=== PATIENT | female | born 1935 | race Two or more races ===

== ENCOUNTER 2023-08-26 17:54 | Observation (INO) ==
--- NOTE | 2023-08-26 18:20 | ED.PDOC ---
General ED Provider: Dr. BRADEN GUERRERO MD Chief Complaint: Weakness Stated Complaint: Patient presents to ER from home via EMS accompanied by her grand-daughter complaining of bilateral knee pain and weakness. Patient's daughter reports patient started to become weaker yesterday morning. Has a history of bilateral total knee arthroplasty. Usually is able to ambulate with front wheeled walker independently. Stated that yesterday she started requiring a 1-2 person assist to transfer. Has also been having urinary incontinence which is unusual for her. No previous history of CHF. Denies fever, chills, nausea, vomiting, or diarrhea. No shortness of breath, chest pain, or paresthesias. No other complaints. Time Seen by Provider: 08/26/23 18:39 Information Source: Patient and Family (Granddaughter) Exam Limitations: No limitations Nursing and Triage Documentation Reviewed and Agree: Yes Review of Systems Review Of Systems Constitutional: Reports Weakness All Other Systems: Reviewed and Negative PFSH Female Reproductive History Menstrual Hx Hysterectomy: No Hx Tubal Ligation: No Physical Exam Physical Exam Appearance: Reports Ill-appearing (Chronic) Ill-appearing: Mild Pain Distress: Mild Eyes: Reports AZAM and EOMI ENT: Reports Ears normal, Nose normal and Oropharynx normal Neck: Supple Respiratory: Reports Airway patent, Breath sounds clear and Breath sounds diminished Cardiovascular: Reports RRR, Pulses normal and No murmur GI/: Reports Soft and Nontender Musculoskeletal: Reports Limited strength (BLE: 3/5 strength; bilateral pedal edema: +3 (up to midshin)) Skin: Reports Warm and Dry Neurological: Reports Sensation intact and Motor intact Psychiatric: Reports Affect appropriate and Mood appropriate Interpretation EKG Interpretation EKG Interpretation By: ED Physician Time of EKG #1: 18:23 Rate: Normal Rhythm: Sinus Ectopy: PVCs and PACs ST Segment: Normal Interpretation: Sinus rhythm with PVCs, PACs; interpreted by me. EKG Interpretation By: ED Physician Time of EKG #2: 20:05 Rate: Normal Rhythm: Sinus Ectopy: PACs ST Segment: Normal EKG Interpretation: Sinus rhythm with PACs interpreted by me. EKG Comparison: No significant changes Radiology Interpretation Radiology Interpretation By: ED Physician Radiology Results: Negative Exam Interpreted: CXR Xray Comments: No acute cardiopulmonary process interpreted by me. Physician Notification Case Discussed Comments: Spoke with on-call hospitalist regarding patient's status and current workup and management. Discussed patient having +3 pitting edema of bilateral lower legs up to mid barrientos as well as significantly elevated BNP of 1780. Given Lasix 20 IV with good urine output (550 cc) noted via Ga catheter. Agreed with inpatient admission for further workup and management. Endorsed To/Discussed With: Alyson Brown PA-C Time of Discussion: 20:00 Admit/Transition Orders Entered by ED Provider: Yes Admit To: Inpatient Critical Care Note Critical Care Note Total Critical Care Time (mins): 0 Course Course 08/26/23 18:36 08/26/23 18:36 Orders, Labs, Meds: Lab Review 08/26/23 08/26/23 08/26/23 18:32 18:36 19:23 WBC 8.72 RBC 4.56 Hgb 13.3 Hct 40.9 MCV 89.7 MCH 29.2 MCHC 32.5 RDW Coeff of Arturo 14.2 Plt Count 244 Immature Gran % (Auto) 0.5 Neut % (Auto) 69.6 Lymph % (Auto) 14.3 [place] % (Auto) 14.8 H Eos % (Auto) 0.7 Baso % (Auto) 0.1 Neut # (Auto) 6.1 Lymph # (Auto) 1.3 [place] # (Auto) 1.3 Eos # (Auto) 0.1 Baso # (Auto) 0.0 Immature Gran # (Auto) 0.0 Sodium 135.7 Potassium 3.35 L Chloride 105.5 Carbon Dioxide 26.7 Anion Gap 6.85 BUN 14.8 Creatinine 1.03 Estimated GFR (MDRD) 51.00 BUN/Creatinine Ratio 14.36 Glucose 128.5 H Calcium 8.21 L Magnesium 1.96 Total Bilirubin 1.27 AST 26.0 ALT 21.0 Alkaline Phosphatase 81.3 Troponin I 0.017 NT-Pro-B Natriuret Pep 1780 H Total Protein 6.57 Albumin 3.33 L Globulin 3.24 Albumin/Globulin Ratio 1.02 TSH 0.639 Urine Color Urine Clarity Urine pH Ur Specific [place] Urine Protein Urine Glucose (UA) Urine Ketones Urine Blood Urine Nitrite Urine Bilirubin Urine Urobilinogen Ur Leukocyte Esterase Urine Microscopic RBC Urine Microscopic WBC Ur Squamous Epith Cells Urine Bacteria Hyaline Casts Fine Granular Casts Urine Mucus Influ A Molecular Assay Negative by naat Influ B Molecular Assay Negative by naat RSV Antigen Negative by naat SARS CoV-2 RNA Rapid EMILIA Negative 08/26/23 19:45 WBC RBC Hgb Hct MCV MCH MCHC RDW Coeff of Arturo Plt Count Immature Gran % (Auto) Neut % (Auto) Lymph % (Auto) [place] % (Auto) Eos % (Auto) Baso % (Auto) Neut # (Auto) Lymph # (Auto) [place] # (Auto) Eos # (Auto) Baso # (Auto) Immature Gran # (Auto) Sodium Potassium Chloride Carbon Dioxide Anion Gap BUN Creatinine Estimated GFR (MDRD) BUN/Creatinine Ratio Glucose Calcium Magnesium Total Bilirubin AST ALT Alkaline Phosphatase Troponin I NT-Pro-B Natriuret Pep Total Protein Albumin Globulin Albumin/Globulin Ratio TSH Urine Color Yellow Urine Clarity Clear Urine pH 5.5 Ur Specific [place] 1.025 Urine Protein 1+ H Urine Glucose (UA) Negative Urine Ketones Negative Urine Blood Trace-lysed Urine Nitrite Negative Urine Bilirubin Negative Urine Urobilinogen 1.0 H Ur Leukocyte Esterase Negative Urine Microscopic RBC 10-20 Urine Microscopic WBC 2-5 Ur Squamous Epith Cells 2-5 Urine Bacteria 2+ Hyaline Casts 5-10 Fine Granular Casts 0-2 Urine Mucus 2+ Influ A Molecular Assay Influ B Molecular Assay RSV Antigen SARS CoV-2 RNA Rapid EMILIA Orders Category Date Time Status ADMIT PATIENT INPATIENT .TO MEDSURG (MONITORED BED) ADMISSION 08/26/23 20:14 Active EKG-(ED ONLY) Stat CARDIO 08/26/23 18:19 Completed EKG-(ED ONLY) Stat CARDIO 08/26/23 20:01 Completed PULSE OX [CONTINUOUS PULSE OX (NURSING)] PULSEOX CARE 08/26/23 18:17 Active TELEMETRY MONITORING TELE CARE 08/26/23 20:14 Active Slab Conditioner Supervisor [ED COATER HAND APPLIED] .ONCE EMERGENCY 08/26/23 18:17 Active Insert Ga [ED CATHETER INSERTION AND CARE] .ONCE EMERGENCY 08/26/23 19:22 Active CBC W/ AUTO DIFF Stat LAB 08/26/23 18:36 Completed CMP [COMPREHENSIVE METABOLIC PANEL] Stat LAB 08/26/23 18:36 Completed FLU A & B MOLECULAR [FLU A/B MOLECULAR] Stat LAB 08/26/23 18:32 Completed MAGNESIUM Stat LAB 08/26/23 19:23 Completed PROBNP ED [NT-PROBNP(ED)] Stat LAB 08/26/23 18:36 Completed RSV Stat LAB 08/26/23 18:32 Completed SARS COV-2 RNA RAPID EMILIA Stat LAB 08/26/23 18:32 Completed TROPONIN I Stat LAB 08/26/23 18:36 Completed TSH [THYROID STIMULATING HORMONE] Stat LAB 08/26/23 18:36 Completed URINALYSIS C & S IF INDICATED Stat LAB 08/26/23 19:45 Completed URINE CULTURE Stat LAB 08/26/23 19:45 Received Furosemide [Lasix] Meds 08/26/23 19:21 Discontinued 20 mg IVP ONCE STA Potassium Chloride [K-Dur] Meds 08/26/23 19:21 Discontinued 40 meq PO ONCE STA CHEST, 1V AP ONLY Stat RADS 08/26/23 18:20 Completed KNEE, LEFT 1 OR 2 VIEWS Stat RADS 08/26/23 18:17 Completed KNEE, RIGHT 1 OR 2 VIEWS Stat RADS 08/26/23 18:17 Completed Medications Discontinued Medications Generic Name Dose Route Start Last Admin Trade Name Freq PRN Reason Stop Dose Admin Furosemide 20 mg 08/26/23 19:21 08/26/23 19:50 Furosemide Inj 20 Mg/2 Ml Vial IVP 08/26/23 19:22 20 mg ONCE STA Administration Potassium Chloride 40 meq 08/26/23 19:21 08/26/23 19:50 Potassium Chloride 20 Meq Tab PO 08/26/23 19:22 40 meq ONCE STA Administration Vital Signs: Temp Pulse Resp BP Pulse Ox 08/26/23 18:07 97.5 F L 106 H 20 103/67 92 L Discharge Plan Discharge Patient Disposition: ADMITTED INPATIENT Discharge Problem: CHF exacerbation Qualifiers: Heart failure type: unspecified Qualified Code(s): I50.9 - Heart failure, unspecified Did you review [place] [employer] for ALL controlled substances?: Not Applicable ED Provider: BRADEN GUERRERO Condition: Stable Physician Progress Note: []
[2023-08-26 18:44] LABS: BASOPHILS % (AUTO) 0.1 % (0.0-3.0); EOSINOPHILS # (AUTO) 0.1 K/ul (0.0-0.7); EOSINOPHILS % (AUTO) 0.7 % (0.0-7.0); HEMATOCRIT 40.9 % (37.0-47.0); HEMOGLOBIN 13.3 g/dl (12.0-16.0); IMMATURE GRANULOCYTE % (AUTO) 0.5 % (0.0-5.0); LYMPHOCYTES # (AUTO) 1.3 K/uL (0.60-3.4); LYMPHOCYTES % (AUTO) 14.3 (10.0-50.0); MEAN CORPUSCULAR HEMOGLOBIN 29.2 pg (27.0-31.0); MEAN CORPUSCULAR HGB CONC 32.5 (31.8-35.4); MEAN CORPUSCULAR VOLUME 89.7 fl (81.0-99.0); MONOCYTES # (AUTO) 1.3 K/uL (0.4-2.0); MONOCYTES % (AUTO) 14.8 (0-10); NEUTROPHILS # (AUTO) 6.1 K/ul (2.0-6.9); NEUTROPHILS % (AUTO) 69.6 % (42.2-75.2); PLATELET COUNT 244 10^3/uL (140-440); RDW COEFFICIENT OF VARIATION 14.2 % (11.6-14.8); RED BLOOD COUNT 4.56 10^6/ul (4.20-5.40); WHITE BLOOD COUNT 8.72 K/ul (4.6-10.2)
[2023-08-26 18:57] LABS: ALBUMIN 3.33 g/dL (3.5-5.0); ALKALINE PHOSPHATASE 81.3 U/L (53-141); BILIRUBIN,TOTAL 1.27 mg/dL (0.2-1.3); BLOOD UREA NITROGEN 14.8 mg/dL (7-17); CALCIUM 8.21 mg/dL (8.4-10.2); CARBON DIOXIDE 26.7 mmol/L (22-30.0); CHLORIDE 105.5 mmol/L (98-107); CREATININE 1.03 mg/dL (0.60-1.30); GLUCOSE 128.5 mg/dL (74-106); POTASSIUM 3.35 mmol/L (3.5-5.1); SODIUM 135.7 mmol/L (134.5-145); TOTAL PROTEIN 6.57 g/dL (6.3-8.2)
[2023-08-26 19:04] LABS: RSV MOLECULAR NEGATIVE BY NAAT (NEGATIVE); SARS COV-2 RNA RAPID NAAT NEGATIVE (NEGATIVE)
[2023-08-26 19:05] LABS: MOLECULAR FLU A NEGATIVE BY NAAT (NEGATIVE); MOLECULAR FLU B NEGATIVE BY NAAT (NEGATIVE)
[2023-08-26] MEDS ORDERED: K-DUR PO STA (19:21)
[2023-08-26] MEDS ORDERED: LASIX IVP STA (19:21)
[2023-08-26 19:28] LABS: THYROID STIMULATING HORMONE 0.639 uIU/L (0.465-4.68)
[2023-08-26 19:58] LABS: BILIRUBIN,URINE Negative (NEGATIVE); CLARITY,URINE Clear (CLEAR); COLOR,URINE Yellow (YELLOW); GLUCOSE, URINE (UA) Negative (NEGATIVE); KETONES,URINE Negative (NEGATIVE); LEUKOCYTE ESTERASE ,URINE Negative (NEGATIVE); NITRITE,URINE Negative (NEGATIVE); PH,URINE 5.5 (5-9); PROTEIN,URINE 1+ (NEGATIVE); URINE, BLOOD Trace-lysed (NEGATIVE)
--- NOTE | 2023-08-26 20:00 | DI ---
EXAM: LEFT KNEE TWO VIEW HISTORY: Left knee pain IMPRESSION: No acute bony or articular abnormality. Knee arthroplasty. No cathi-hardware fracture or evidence of loosening. Generalized bony demineralization.
--- NOTE | 2023-08-26 20:01 | DI ---
EXAM: RIGHT KNEE TWO-VIEW History: Right knee pain Impression: Right knee arthroplasty. No cathi-hardware fracture or evidence of loosening. No acute bony or articular abnormalities. The bones are demineralized.
--- NOTE | 2023-08-26 20:02 | DI ---
THE EXAM: CHEST ONE-VIEW History: Diminished breath sounds FINDINGS: Normal cardiomediastinal contours aside from small hiatus hernia shadow. Normal pulmonary vasculature. No infiltrative opacities. No acute chest wall abnormality. Impression: No acute cardiopulmonary disease
[2023-08-26 20:05] LABS: BACTERIA,URINE 2+ (NOT PRESENT)
[2023-08-26 20:06] LABS: FINE GRANULAR CASTS,URINE 0-2 (NOT PRESENT)
[2023-08-26 20:07] LABS: MUCUS,URINE 2+ (NOT PRESENT)
[2023-08-26] MEDS ORDERED: ZOFRAN 4 MG/2 ML IVP PRN (20:53)
[2023-08-26] MEDS ORDERED: TYLENOL PO PRN (20:53)
[2023-08-26 21:33] VITALS: BMI 31.3
[2023-08-26] MEDS: LOVENOX SUBCUT SCH (21:56)
[2023-08-26] MEDS: LOPRESSOR PO SCH (22:26)
[2023-08-27] MEDS: LASIX IVP SCH ×3 (01:07→16:42)
[2023-08-27 05:54] LABS: BASOPHILS % (AUTO) 0.1 % (0.0-3.0); EOSINOPHILS # (AUTO) 0.2 K/ul (0.0-0.7); EOSINOPHILS % (AUTO) 2.1 % (0.0-7.0); HEMATOCRIT 43.7 % (37.0-47.0); IMMATURE GRANULOCYTE % (AUTO) 0.4 % (0.0-5.0); LYMPHOCYTES # (AUTO) 1.6 K/uL (0.60-3.4); LYMPHOCYTES % (AUTO) 19.3 (10.0-50.0); MEAN CORPUSCULAR HEMOGLOBIN 29.4 pg (27.0-31.0); MEAN CORPUSCULAR VOLUME 91.6 fl (81.0-99.0); MONOCYTES % (AUTO) 12.3 (0-10); NEUTROPHILS # (AUTO) 5.3 K/ul (2.0-6.9); NEUTROPHILS % (AUTO) 65.8 % (42.2-75.2); PLATELET COUNT 266 10^3/uL (140-440); RDW COEFFICIENT OF VARIATION 14.3 % (11.6-14.8); RED BLOOD COUNT 4.77 10^6/ul (4.20-5.40); WHITE BLOOD COUNT 8.04 K/ul (4.6-10.2)
[2023-08-27 06:07] LABS: ALANINE AMINOTRANSFERASE 20.7 U/L (0-35); ALBUMIN 3.57 g/dL (3.5-5.0); ALKALINE PHOSPHATASE 81.1 U/L (53-141); ASPARTATE AMINO TRANSFERASE 26.7 U/L (14-36); BILIRUBIN,TOTAL 1.04 mg/dL (0.2-1.3); BLOOD UREA NITROGEN 15.6 mg/dL (7-17); CALCIUM 8.35 mg/dL (8.4-10.2); CARBON DIOXIDE 28.7 mmol/L (22-30.0); CHLORIDE 104.9 mmol/L (98-107); CREATININE 0.94 mg/dL (0.60-1.30); GLUCOSE 97.3 mg/dL (74-106); HDL CHOLESTEROL 37.5 mg/dL (35-80); POTASSIUM 4.01 mmol/L (3.5-5.1); SODIUM 137.2 mmol/L (134.5-145); TOTAL PROTEIN 6.96 g/dL (6.3-8.2); TRIGLYCERIDES 75.8 mg/dL (0-150)
[2023-08-27] MEDS: FERROUS SULFATE PO SCH (09:10)
[2023-08-27] MEDS: LOPRESSOR PO SCH ×2 (09:10→20:15)
[2023-08-27] MEDS: LOVENOX SUBCUT SCH (09:19)
--- NOTE | 2023-08-27 09:50 | PCM ---
Date of Service Date Seen by Provider: 08/27/23 Time Seen by Provider: 08:15 Admit Day/Time Admission Date: 08/26/23 Admission Time: 20:14 Reason for Admission Chief Complaint: CHF EXACERBATION Hospital Provider Hospital Provider: LILIANA DENISE PA-C, [facility] Primary Care Physician Primary Care Physician: ARY VIDAL History of Present Illness History of Present Illness: Patient is an 88 year old female from home with pmhx of hypertension, iron deficiency, skin cancer who presented to ER for weakness, unable to walk, and swelling in her legs. Patient states for the last few days she's went from walking with her walker to needing 1-2 people to assist her with ADLs. She states she went to sit on the toilet to use the bathroom and had to sit there for about 3 hours until someone came and helped her get up. She states her legs have been swollen but she's unsure how long they've been like that. She thinks this is new. States her legs have been weeping. She denies cp or sob. Has had some urinary frequency. In ER she was found to have elevated BNP, 3+ pitting edema, and ERP states she was going in and out of a fib which was new for the patient as well. She was given lasix and potassium in ER. Admitted to med surg for further evaluation. Overnight the nurse had documented patient would drop into oxygen saturation of 80s while sleeping as well. Case Discussed With Case Discussed With: Patient's case was discussed with the ER Physicians, Dr. Sung. 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 - Benign neoplasm, unspecified site (ICD-10) Hypertension I10 - Essential (primary) hypertension (ICD-10) Skin cancer C44.90 - Unspecified malignant neoplasm of skin, unspecified (ICD-10) Surgical History History of bilateral knee arthroplasty Z96.653 - Presence of artificial knee joint, bilateral (ICD-10) Family History Mother Blood clot associated with vein wall inflammation FATHER Pneumonia Social History Number of children: 3 Allergies Allergies Allergy/AdvReac Type Severity Reaction Status Date / Time No Known Allergies Allergy Unverified 08/26/23 18:07 Current Medications Home Medications acetaminophen 650 mg tablet,extended release (Arthritis Pain Relief (acetaminophen) ER) 650 mg PO Q12H PRN pain 08/26/23 [History Confirmed 08/26/23 Last Taken Unknown] ferrous sulfate 325 mg (65 mg iron) tablet (Feosol) 325 mg PO DAILY 08/26/23 [History Confirmed 08/26/23 Last Taken Unknown] folic acid 1 mg tablet 1 mg PO DAILY 08/26/23 [History Confirmed 08/26/23 Last Taken Unknown] metoprolol tartrate 25 mg tablet 25 mg PO BID 08/26/23 [History Confirmed 08/26/23 Last Taken Unknown] Home Acetaminophen (Acetaminophen 325 Mg Tablet) 650 mg PO Q4H PRN PRN Reason: Mild Pain Enoxaparin Sodium (Enoxaparin Sodium 100 Mg/Ml Syr) 70 mg SUBCUT Q12HR [facility] Last Admin: 08/27/23 09:19 Dose: 70 mg Ferrous Sulfate (Ferrous Sulfate 324 Mg Tablet.Dr) 324 mg PO DAILY [facility] Last Admin: 08/27/23 09:10 Dose: 324 mg Furosemide (Furosemide Inj 20 Mg/2 Ml Vial) 20 mg IVP Q8H [facility] Last Admin: 08/27/23 09:11 Dose: 20 mg Metoprolol Tartrate (Metoprolol Tartrate 25 Mg Tablet) 25 mg PO BID [facility] Last Admin: 08/27/23 09:10 Dose: 25 mg Ondansetron HCl (Ondansetron Hcl/Pf 4 Mg/2 Ml Sdv) 4 mg IVP Q6H PRN PRN Reason: Nausea / Vomiting Discontinued Medications Furosemide (Furosemide Inj 20 Mg/2 Ml Vial) 20 mg IVP ONCE STA Stop: 08/26/23 19:22 Last Admin: 08/26/23 19:50 Dose: 20 mg Potassium Chloride (Potassium Chloride 20 Meq Tab) 40 meq PO ONCE STA Stop: 08/26/23 19:22 Last Admin: 08/26/23 19:50 Dose: 40 meq Review of Systems Constitutional: Reports Fatigue and Weakness Head: Reports Normocephalic and Atraumatic Cardiovascular: Reports Edema; Denies Chest pain or Chest Pressure Respiratory: Denies Cough or Shortness of air Gastrointestinal: Denies Nausea, Vomiting, Diarrhea, Abdominal pain or Melena Genitourinary: Reports Frequency; Denies Dysuria Dermatologic: Denies Rashes Neurological: Reports Weakness and Problems with walking Physical examination Most Recent Vital Signs: Most Recent Vital Signs Temperature 98.2 F 08/27/23 05:07 Temperature Source Oral 08/27/23 05:07 Temperature Source Oral 08/26/23 18:07 Pulse Rate 80 08/27/23 05:07 Respiratory Rate 16 08/27/23 02:00 Blood Pressure 122/76 08/27/23 05:07 Blood Pressure Mean 91 08/27/23 05:07 Blood Pressure Left Arm 108/64 08/26/23 21:06 Blood Pressure Location Right Arm 08/27/23 05:07 Blood Pressure Position Supine 08/27/23 05:07 O2 Sat by Pulse Oximetry 94 L 08/27/23 05:07 Oxygen Delivery Method Room Air 08/27/23 05:07 Height 5 ft 08/26/23 21:06 Weight 160 lb 7 oz 08/26/23 21:06 Telemetry Type Remote Telemetry 08/27/23 01:00 Telemetry Monitoring Continues 08/27/23 01:00 Telemetry Heart Rate 65 08/27/23 01:00 Telemetry SPO2 97 08/27/23 01:00 EKG DE Interval 0.17 08/27/23 01:00 EKG QRS Interval 0.04 L 08/27/23 01:00 Telemetry Strip Reading SR WITH PAC'S 08/27/23 01:00 Pulse Oximetry Type Remote Telemetry 08/27/23 01:00 Pulse Oximetry Monitoring Continues 08/27/23 01:00 Appearance: Positive No Apparent Distress and Alert and Oriented x3 Skin: Positive [place], Warm and Good Turgor; Negative Rashes HEENT: Positive Normocephalic and Atraumatic Neck: Positive Supple and Midline Trachea Chest/Lungs: Positive Clear to Auscultation Bilaterally; Negative Rales, Rhonci or Wheezes Heart: Positive RRR GI/: Positive Soft, Nontender, Bowel Sounds Normal and No Distention Extremities: Positive Edema (1-2+ pitting edema to knees bilterally. Anterior thickness of skin with scaling and mild erythema consistent with venous stasis d ermatitis. ) Neurological: Positive Cranial Nerves Intact, Alert, Oriented and Other (+generalized weakness, barely able to lift legs off of the bed. ); Negative Focal Deficit Psychiatric: Positive Oriented x4, Appropriate Mood and Appropriate Affect Labs This Visit Labs This Visit: Labs This Visit 08/26/23 08/26/23 08/26/23 18:32 18:36 19:23 WBC 8.72 RBC 4.56 Hgb 13.3 Hct 40.9 MCV 89.7 MCH 29.2 MCHC 32.5 RDW Coeff of Arturo 14.2 Plt Count 244 Immature Gran % (Auto) 0.5 Neut % (Auto) 69.6 Lymph % (Auto) 14.3 [place] % (Auto) 14.8 H Eos % (Auto) 0.7 Baso % (Auto) 0.1 Neut # (Auto) 6.1 Lymph # (Auto) 1.3 [place] # (Auto) 1.3 Eos # (Auto) 0.1 Baso # (Auto) 0.0 Immature Gran # (Auto) 0.0 Sodium 135.7 Potassium 3.35 L Chloride 105.5 Carbon Dioxide 26.7 Anion Gap 6.85 BUN 14.8 Creatinine 1.03 Estimated GFR (MDRD) 51.00 BUN/Creatinine Ratio 14.36 Glucose 128.5 H Hemoglobin A1c Calcium 8.21 L Magnesium 1.96 Total Bilirubin 1.27 AST 26.0 ALT 21.0 Alkaline Phosphatase 81.3 Troponin I 0.017 NT-Pro-B Natriuret Pep 1780 H Total Protein 6.57 Albumin 3.33 L Globulin 3.24 Albumin/Globulin Ratio 1.02 Triglycerides Cholesterol LDL Cholesterol, Calc VLDL Cholesterol HDL Cholesterol Cholesterol/HDL Ratio TSH 0.639 Urine Color Urine Clarity Urine pH Ur Specific [place] Urine Protein Urine Glucose (UA) Urine Ketones Urine Blood Urine Nitrite Urine Bilirubin Urine Urobilinogen Ur Leukocyte Esterase Urine Microscopic RBC Urine Microscopic WBC Ur Squamous Epith Cells Urine Bacteria Hyaline Casts Fine Granular Casts Urine Mucus Influ A Molecular Assay Negative by naat Influ B Molecular Assay Negative by naat RSV Antigen Negative by naat SARS CoV-2 RNA Rapid EMILIA Negative 08/26/23 08/27/23 19:45 05:05 WBC 8.04 RBC 4.77 Hgb 14.0 Hct 43.7 MCV 91.6 MCH 29.4 MCHC 32.0 RDW Coeff of Arturo 14.3 Plt Count 266 Immature Gran % (Auto) 0.4 Neut % (Auto) 65.8 Lymph % (Auto) 19.3 [place] % (Auto) 12.3 H Eos % (Auto) 2.1 Baso % (Auto) 0.1 Neut # (Auto) 5.3 Lymph # (Auto) 1.6 [place] # (Auto) 1.0 Eos # (Auto) 0.2 Baso # (Auto) 0.0 Immature Gran # (Auto) 0.0 Sodium 137.2 Potassium 4.01 Chloride 104.9 Carbon Dioxide 28.7 Anion Gap 7.61 BUN 15.6 Creatinine 0.94 Estimated GFR (MDRD) 56.00 BUN/Creatinine Ratio 16.59 Glucose 97.3 Hemoglobin A1c 5.48 Calcium 8.35 L Magnesium Total Bilirubin 1.04 AST 26.7 ALT 20.7 Alkaline Phosphatase 81.1 Troponin I NT-Pro-B Natriuret Pep Total Protein 6.96 Albumin 3.57 Globulin 3.39 Albumin/Globulin Ratio 1.05 Triglycerides 75.8 Cholesterol 177.0 LDL Cholesterol, Calc 124 VLDL Cholesterol 15 HDL Cholesterol 37.5 Cholesterol/HDL Ratio 4.7 TSH Urine Color Yellow Urine Clarity Clear Urine pH 5.5 Ur Specific [place] 1.025 Urine Protein 1+ H Urine Glucose (UA) Negative Urine Ketones Negative Urine Blood Trace-lysed Urine Nitrite Negative Urine Bilirubin Negative Urine Urobilinogen 1.0 H Ur Leukocyte Esterase Negative Urine Microscopic RBC 10-20 Urine Microscopic WBC 2-5 Ur Squamous Epith Cells 2-5 Urine Bacteria 2+ Hyaline Casts 5-10 Fine Granular Casts 0-2 Urine Mucus 2+ Influ A Molecular Assay Influ B Molecular Assay RSV Antigen SARS CoV-2 RNA Rapid EMILIA Microbiology This Visit 08/26/23 19:45 Urine,Clean Catch Urine Culture - Preliminary Imaging Imaging: THE EXAM: CHEST ONE-VIEW History: Diminished breath sounds FINDINGS: Normal cardiomediastinal contours aside from small hiatus hernia shadow. Normal pulmonary vasculature. No infiltrative opacities. No acute chest wall abnormality. Impression: No acute cardiopulmonary disease Review Statement Review Statement: I have independently reviewed and interpreted the labs/EKGs/imaging that were ordered by the ER provider. I have reviewed all outside records that are available currently in our EMR including imaging/notes/labs from previous visits. Plan Plan: 1. Acute CHF exacerbation, unknown type, new onset - BNP 1780, +edema, unable to walk as usual. Lasix 20 mg IVP 18hrs, I&Os, daily weight, echo planned for today. Apply O2 prn. 2. Arrhythmia - Appears sinus on tele. EKGs reviewed. Questionable a fib in ER. Will continue to monitor. Monitor lytes. Check echo. Consider holter upon discharge. 3. Weakness and debility - Unable to perform ADLs, patient is a very high fall risk and readmission risk, would benefit from additional therapy. PT/OT ordered. 4. Hypokalemia - Resolved 5. Hypertension - Cont home meds 6. Iron deficiency - Cont home meds 7. Arthritis - Cont home meds DVT Prophylaxis: Lovenox, change to prophylactic dose Time Spent: Greater than 80 minutes spent with patient, 50% of the time spent with this patient was devoted to counseling and coordination of care. Admit to: Inpt Discussed Plan of Care with Dr. Kendra Thorpe Medications Medication Orders: Medications Ordered Category Date Time Status Acetaminophen [Tylenol] Meds 08/26/23 20:53 Active 650 mg PO Q4H PRN Enoxaparin Sodium [Lovenox] Meds 08/26/23 21:00 Active 70 mg SUBCUT Q12HR Ferrous Sulfate Meds 08/27/23 09:00 Active 324 mg PO DAILY Furosemide [Lasix] Meds 08/27/23 01:00 Active 20 mg IVP Q8H Metoprolol Tartrate [Lopressor] Meds 08/26/23 22:30 Active 25 mg PO BID Ondansetron HCl/Pf [Zofran 4 mg/2 ml] Meds 08/26/23 20:53 Active 4 mg IVP Q6H PRN
--- NOTE | 2023-08-27 13:26 | RS.OTINEVL ---
Subjective Patient information Date of Evaluation: 09/27/23 Date of Arrival on Unit: 08/26/23 Admitted From:: Home Diagnosis: CHF exacerbation PRECAUTIONS: Bilateral knee pain, difficulty walking Usual Living Arrangement: Alone Living Arrangement Comments: Lives alone and has a Jeep for people to take her places. Home Environment: House Medical History: CHF Surgical History Comments:: Bilateral TKA Medications: Refer to chart for meds. Subjective Information/ Patient Comments:: "I can get therapy at the senior living near my home." Level of function Prior to this admission, the patient could do the following:: Independent Selfcare, Independent ADL's, Independent Ambulation, Perform Manager/Cooking and Participated in Social Activities Outside home Abilities prior to this admission: Pt cooked Thanksgiving dinner for her family. Current Level of Function: Partially Dependent Current Equipment Used at Home: ROLLATOR, BSC, CANE Pain Assessment Pain Side: bilateral Pain Location Body Site: Knee Pain Aggravating Factors: Changing Position and Standing Pain Alleviating Factors: Medication, Position Change and Lying Supine Interventions Objective Patient Orientation: Person, Place and Situation Current Interventions: IV's Observation: Pt able to hold to RW and shuffle her feet to get to the recliner and plop down. Pt does not appear to bend her knees much. Interventions ROM Right Upper Extremity AROM: Slight limitation Left Upper Extremity AROM: Slight limitation Strength Right Upper Extremity: Mild Weakness Left Upper Extremity: Mild Weakness Sensation Right Upper Extremity: Intact/Normal Left Upper Extremity: Intact/Normal Balance Sitting Balance Static Sitting Balance: Good Dynamic Sitting Balance: Good Standing Balance Static Standing Balance: Poor Dynamic Standing Balance: Poor ADL Skills Self Feeding Self Feeding: Independent Grooming Grooming: CGA Bathing Bathing LE: Min Assist Bathing Set-up: Shower Dressing Dressing UE: Independent Dressing LE: Min Assist Toilet Management Toilet Hygiene: Independent Toilet Clothing Management: Min Assist Functional Mobility Bed Mobility Rolling R/L: Independent Scooting: Min Assist Supine to Sit: Min Assist Transfers Sit to Stand: Min Assist Stand to Sit: CGA Ambulation Weight Bearing Status: WBAT Assistive Device Used: Rolling Walker Orthotic/Prosthetic Device: No Assistance needed with Ambulation: Min Assist Safety Awareness Safety Awareness: Good PAOLA INDEX SCORE: . Additional Treatment Performed Time with patient Length of Evaluation: 18 Total treatment time: 20 Activities Do you enjoy playing games?: Yes Would you be interested in leaving your room for activities?: Yes Would you enjoy group activities?: Yes Do you have difficulty with your vision?: Yes What types of things do you enjoy doing? Any Hobbies?: TV, cooking, Patient Interests:: Watching Television and Visiting/Socializing Patient Education Patient Education: Body/Joint mechanics, Home Exercise Program, Home Safety, Activity Modification and Education of Plan of Care Teaching Recipient: Patient Teaching Methods: Teach Back Method Used, Discussion and Demonstration Assessment Problem List:: Decreased level of function, Requires training/education, Decreased safety/Risk of falls, Weakness and Pain limits previous level of function Rehab Potential: Fair Further Therapy Indicated?: Yes Evaluation Complexity: HISTORY: Medium, EXAM OF BODY SYSTEMS: Medium and CLINICAL DECISION MAKING: Medium Patient's Goal(s): To be able to get therapy at the senior living near her home and then go home. Short Term Goals Goals GOAL 1: Pt to be CGA for brushing teeth at the sink. Goal to be met by: 09/01/23 GOAL 2: Pt to increase dyn. std. bal. to F-. Goal to be met by: 09/01/23 GOAL 3: Pt to increase BUE strengtht to 4/5. Goal to be met by: 09/01/23 GOAL 4: Pt to be CGA for toilet transfers with RW. Goal to be met by: 09/01/23 GOAL 5: Pt to be I with LE dressing. Goal to be met by: 09/01/23 Wax Ball Molder Goals GOAL 1: Pt to be (I) with ADLS. Goal to be met by: 09/04/23 GOAL 2: Pt to be I with toilet transfers with RW. Goal to be met by: 09/04/23 GOAL 3: Pt to increase BUE strength to 4+/5. Goal to be met by: 09/04/23 Plan Plan of Care: Therapeutic EX, Neuromuscular Re-Educ, Therapeutic Activity and Self-Care/Home Management Modalities: Cold Pack/Cryotherapy Frequency of Treatment: 1-2 X day, as tolerated Duration of Treatment: 1 Week Anticipated Discharge Destination: [facility]ustodial Care Facility Treatment Diagnosis (ICD 10 Codes): Weakness R53.1 Has the Physician been added for Co-signature?: Yes
--- NOTE | 2023-08-27 13:30 | ECHO2D ---
Date of Exam: 08/27/2023 Ordering Physician: HOSPITALIST- LILIANA DENISE NP Room #: [address] [place] [address] (PCP in [place], [place]) Reason for Echo: EDEMA, ELEVATED BNP, ATRIAL FIBRILLATION M-Mode Normal Adult Results LV Dimensions Normal Adult Results AoV Opening excursions >1.6 1.2 LVEDD-base- 3.5-5.8 3.6 Ao root dimensions 2.0-3.7 2.8 LVESD-base- 3.1-4.6 L. Atrium dimensions 1.9-3.8 4.5 Post. Wall thickness 0.8-1.1 1.1 IV septum (thickness) 0.7-1.2 1.2 Post. Wall excursion 0.72-1.3 NORMAL Septal motion NORMAL Systolic motion R. Ventricular cavity 1.5-2.0 NORMAL LVEF 60% >60% Paradoxical septal wall motion NORMAL 2-D : CALCIFIC AORTIC LEAFLETS, CALCIFIC MITRAL VALVE ANNULUS. NORMAL LEFT VENTRICLE SIZE AND CONTRACTILITY. ENLARGED LEFT ATRIAL CAVITY. NO EFFUSION. NO THROMBUS. PLANIMETRY AORTIC VALVE AREA 1.9cm2 COLOR FLOW: MODERATE AORTIC REGURGITATION M-MODE: MV: CALCIFIC MITRAL VALVE ANNULUS AV: CALCIFIC AORTIC VALVE LEAFLETS - MILD AORTIC STENOSIS TV: NORMAL PV: CHAMBER SIZE: ENLARGED LEFT ATRIAL CAVITY. WALL MOTION: NORMAL PERICARDIUM: NORMAL INTERPRETATION: 1. BORDERLINE LEFT VENTRICULAR HYPERTROPHY WITH ENLARGED LEFT ATRIAL CAVITY. 2. CALCIFIC MILD AORTIC STENOSIS - PLANIMETRY VALVE AREA 1.9cm2 3. MODERATE AORTIC REGURGITATION BY COLOR FLOW. 4. NORMAL LEFT VENTRICLE SIZE AND LEFT VENTRICULAR CONTRACTILITY. MTDD
[2023-08-28] MEDS: LASIX IVP SCH ×2 (00:26→09:41)
[2023-08-28 08:56] LABS: BASOPHILS % (AUTO) 0.1 % (0.0-3.0); EOSINOPHILS # (AUTO) 0.2 K/ul (0.0-0.7); EOSINOPHILS % (AUTO) 2.7 % (0.0-7.0); HEMATOCRIT 42.9 % (37.0-47.0); HEMOGLOBIN 13.8 g/dl (12.0-16.0); IMMATURE GRANULOCYTE % (AUTO) 0.3 % (0.0-5.0); LYMPHOCYTES # (AUTO) 1.4 K/uL (0.60-3.4); LYMPHOCYTES % (AUTO) 20.3 (10.0-50.0); MEAN CORPUSCULAR HEMOGLOBIN 28.9 pg (27.0-31.0); MEAN CORPUSCULAR HGB CONC 32.2 (31.8-35.4); MEAN CORPUSCULAR VOLUME 89.9 fl (81.0-99.0); MONOCYTES # (AUTO) 0.5 K/uL (0.4-2.0); MONOCYTES % (AUTO) 7.5 (0-10); NEUTROPHILS # (AUTO) 4.9 K/ul (2.0-6.9); NEUTROPHILS % (AUTO) 69.1 % (42.2-75.2); PLATELET COUNT 359 10^3/uL (140-440); RDW COEFFICIENT OF VARIATION 14.1 % (11.6-14.8); RED BLOOD COUNT 4.77 10^6/ul (4.20-5.40)
[2023-08-28] MEDS ORDERED: LOVENOX SUBCUT SCH (09:00)
[2023-08-28 09:01] LABS: ALANINE AMINOTRANSFERASE 21.1 U/L (0-35); ALBUMIN 3.69 g/dL (3.5-5.0); ASPARTATE AMINO TRANSFERASE 26.4 U/L (14-36); BILIRUBIN,TOTAL 0.64 mg/dL (0.2-1.3); BLOOD UREA NITROGEN 21.7 mg/dL (7-17); CALCIUM 8.44 mg/dL (8.4-10.2); CARBON DIOXIDE 29.5 mmol/L (22-30.0); CHLORIDE 103.5 mmol/L (98-107); CREATININE 1.11 mg/dL (0.60-1.30); POTASSIUM 3.39 mmol/L (3.5-5.1); SODIUM 137.9 mmol/L (134.5-145); TOTAL PROTEIN 7.4 g/dL (6.3-8.2)
[2023-08-28 09:21] VITALS: RESP 16
[2023-08-28] MEDS: LOPRESSOR PO SCH (09:42)
[2023-08-28] MEDS: FERROUS SULFATE PO SCH (09:42)
--- NOTE | 2023-08-28 09:50 | PCM.PROG ---
Date/Time Seen Date Seen by Provider: 08/28/23 Time Seen by Provider: 08:30 Provider [facility] Chief Complaint Chief Complaint: CHF EXACERBATION Subjective Subjective: Patient states she is feeling a bit better today. Swelling improved. Heels no longer hurting. Knees are still painful at times. She required x2 assist last night to sit up and get out of bed. Doing better this morning. Feels she needs some time at rehab to be safe at home. Objective Appearance: Positive No Apparent Distress and Alert and Oriented x3 Chest/Lungs: Positive Clear to Auscultation Bilaterally; Negative Rales, Rhonci or Wheezes Heart: Positive RRR and Murmur GI/: Positive Soft, Nontender, Bowel Sounds Normal and No Distention Musculoskeletal: Positive Other (+ 1+ pitting edema libby lower ext, improved, also chronic venous stasis changes noted. ) Neurological: Positive Alert, Oriented and Other (+generalized weakness. ) Vital Signs Vital Signs: Vital Signs: Last 24 Hours 08/27/23 10:00 08/27/23 13:00 08/27/23 13:00 Temperature 98.0 F Temperature Source Tympanic Pulse Rate 88 Respiratory Rate Blood Pressure 114/70 Blood Pressure Mean 84 Blood Pressure Location Right Arm Blood Pressure Position Supine O2 Sat by Pulse Oximetry 95 93 L Oxygen Delivery Method Room Air Room Air Oxygen Flow Rate Telemetry Type Remote Telemetry Telemetry Monitoring Continues Telemetry Heart Rate Telemetry SPO2 93 EKG AR Interval 0.14 EKG QRS Interval 0.06 Telemetry Strip Reading SR Pulse Oximetry Type Remote Telemetry Pulse Oximetry Monitoring Continues 08/27/23 14:00 08/27/23 17:24 08/27/23 19:00 Temperature 97.6 F 98.4 F Temperature Source Temporal Artery Scan Oral Pulse Rate 84 101 H Respiratory Rate 16 16 Blood Pressure 104/66 102/69 Blood Pressure Mean 78 80 Blood Pressure Location Right Arm Right Arm Blood Pressure Position Supine Supine O2 Sat by Pulse Oximetry 92 L 94 L 93 L Oxygen Delivery Method Room Air Room Air Room Air Oxygen Flow Rate Telemetry Type Telemetry Monitoring Telemetry Heart Rate Telemetry SPO2 EKG AR Interval EKG QRS Interval Telemetry Strip Reading Pulse Oximetry Type Remote Telemetry Pulse Oximetry Monitoring Continues 08/27/23 19:00 08/27/23 20:00 08/27/23 21:24 Temperature 98.3 F Temperature Source Oral Pulse Rate 76 Respiratory Rate 18 Blood Pressure 96/50 L Blood Pressure Mean 65 Blood Pressure Location Left Arm Blood Pressure Position Supine O2 Sat by Pulse Oximetry 94 L Oxygen Delivery Method Room Air Room Air Oxygen Flow Rate Telemetry Type Remote Telemetry Telemetry Monitoring Continues Telemetry Heart Rate 100 Telemetry SPO2 93 EKG AR Interval EKG QRS Interval 0.06 Telemetry Strip Reading Afib Pulse Oximetry Type Pulse Oximetry Monitoring 08/28/23 01:00 08/28/23 01:00 08/28/23 05:07 Temperature 96.9 F L Temperature Source Temporal Artery Scan Pulse Rate 74 Respiratory Rate 18 Blood Pressure 123/65 Blood Pressure Mean 84 Blood Pressure Location Left Arm Blood Pressure Position Supine O2 Sat by Pulse Oximetry 93 L 98 Oxygen Delivery Method Room Air Room Air Oxygen Flow Rate 3 Telemetry Type Remote Telemetry Telemetry Monitoring Continues Telemetry Heart Rate 96 Telemetry SPO2 95 EKG AR Interval 14 H EKG QRS Interval 0.04 L Telemetry Strip Reading NSR Pulse Oximetry Type Remote Telemetry Pulse Oximetry Monitoring Continues 08/28/23 07:00 08/28/23 07:00 08/28/23 08:00 Temperature Temperature Source Pulse Rate Respiratory Rate 16 Blood Pressure Blood Pressure Mean Blood Pressure Location Blood Pressure Position O2 Sat by Pulse Oximetry Oxygen Delivery Method Room Air Room Air Oxygen Flow Rate 93 Telemetry Type Remote Telemetry Telemetry Monitoring Continues Telemetry Heart Rate 90 Telemetry SPO2 93 EKG AR Interval 0.18 EKG QRS Interval 0.08 Telemetry Strip Reading SR WITH PACS Pulse Oximetry Type Remote Telemetry Pulse Oximetry Monitoring Continues Lab Results Lab Results: Lab Results: Last 24 Hours 08/28/23 08:40 WBC 7.10 RBC 4.77 Hgb 13.8 Hct 42.9 MCV 89.9 MCH 28.9 MCHC 32.2 RDW Coeff of Arturo 14.1 Plt Count 359 D Immature Gran % (Auto) 0.3 Neut % (Auto) 69.1 Lymph % (Auto) 20.3 [place] % (Auto) 7.5 Eos % (Auto) 2.7 Baso % (Auto) 0.1 Neut # (Auto) 4.9 Lymph # (Auto) 1.4 [place] # (Auto) 0.5 Eos # (Auto) 0.2 Baso # (Auto) 0.0 Immature Gran # (Auto) 0.0 Sodium 137.9 Potassium 3.39 L Chloride 103.5 Carbon Dioxide 29.5 Anion Gap 8.29 BUN 21.7 H Creatinine 1.11 Estimated GFR (MDRD) 46.00 BUN/Creatinine Ratio 19.54 Glucose 121.0 H Calcium 8.44 Total Bilirubin 0.64 AST 26.4 ALT 21.1 Alkaline Phosphatase 100.0 Total Protein 7.40 Albumin 3.69 Globulin 3.71 Albumin/Globulin Ratio 0.99 Additional Comments Additional Comments: I have independently reviewed and interpreted the labs/EKGs/imaging ordered during this hospital stay. I have reviewed outside records that are available in our EMR that pertain to medical stay including imaging/notes/labs from previous visits. Active Medications Active Medications: Medications Generic Name Dose Route Start Last Admin Trade Name Freq PRN Reason Stop Dose Admin Acetaminophen 650 mg 08/26/23 20:53 08/27/23 16:46 Acetaminophen 325 Mg Tablet PO 650 mg Q4H PRN Administration Mild Pain Enoxaparin Sodium 40 mg 08/28/23 09:00 08/28/23 09:43 Enoxaparin Sodium 40 Mg/0.4 Ml Syr SUBCUT 40 mg DAILY GRAHAM Administration Ferrous Sulfate 324 mg 08/27/23 09:00 08/28/23 09:42 Ferrous Sulfate 324 Mg Tablet.Dr PO 324 mg DAILY GRAHAM Administration Metoprolol Tartrate 25 mg 08/26/23 22:30 08/28/23 09:42 Metoprolol Tartrate 25 Mg Tablet PO 25 mg BID GRAHAM Administration Ondansetron HCl 4 mg 08/26/23 20:53 Ondansetron Hcl/Pf 4 Mg/2 Ml Sdv IVP Q6H PRN Nausea / Vomiting Sodium Chloride 1 syr 08/27/23 21:00 08/28/23 05:19 0.9% Sodium Chloride 10 Ml Disp.Syrin IVF 1 syr Q8HR GRAHAM Administration Plan Plan: 1. Acute HFpEF exacerbation, new onset - Improving, BNP 1780, +edema, unable to walk as usual. Stop lasix today, cont I&Os, daily weight. Apply O2 prn. 2. Arrhythmia - Appears sinus on tele. EKGs reviewed. Questionable a fib in ER. Will continue to monitor. Monitor lytes. Consider holter upon discharge. 3. Weakness and debility - Unable to perform ADLs, patient is a very high fall risk and readmission risk, would benefit from additional therapy. PT/OT ordered. 4. Hypokalemia - Resolved 5. Hypertension - Cont home meds 6. Iron deficiency - Cont home meds 7. Arthritis - Cont home meds Review Statement Review Statement: I have personally discussed and reviewed the patient's visit/currently labs/imaging/decision making with Dr. Thorpe, my supervising attending. Greater that 50 minutes spent with patient, 50% of the time spent with this patient was devoted to counseling and coordination of care.
[2023-08-28 10:39] VITALS: BP 95/49; PULSE 86; TEMP 97.8
[2023-08-28] MEDS ORDERED: K-DUR PO ONE (13:25)
--- NOTE | 2023-08-28 14:31 | DCSUM ---
Admission Date Admission Date: 08/26/23 Discharge Date Discharge Date: 08/28/23 Admission Diagnosis Admission Diagnosis: 1. Acute CHF exacerbation 2. Arrhythmia 3. Weakness and debility Discharge Diagnosis Discharge Diagnosis: 1. Acute HFpEF exacerbation, new onset 2. Arrhythmia - Appears sinus 3. Weakness and debility - Improved 4. Hypokalemia - Resolved 5. Hypertension - Cont home meds 6. Iron deficiency - Cont home meds 7. Arthritis - Cont home meds Hospital Provider Hospital Provider: [facility]IA[facility] DENISE [facility]-C[facility] Primary Care Physician Primary Care Physician: RAY VIDAL Summary of History and Physical Summary of History and Physical: Patient is an 88 year old female from home with pmhx of hypertension, iron deficiency, skin cancer who presented to ER for weakness, unable to walk, and swelling in her legs. Patient states for the last few days she's went from walking with her walker to needing 1-2 people to assist her with ADLs. She states she went to sit on the toilet to use the bathroom and had to sit there for about 3 hours until someone came and helped her get up. She states her legs have been swollen but she's unsure how long they've been like that. She thinks this is new. States her legs have been weeping. She denies cp or sob. Has had some urinary frequency. In ER she was found to have elevated BNP, 3+ pitting edema, and ERP states she was going in and out of a fib which was new for the patient as well. She was given lasix and potassium in ER. Admitted to med surg for further evaluation. Overnight the nurse had documented patient would drop into oxygen saturation of 80s while sleeping as well. Hospital Course Subjective: Patient was diuresed with lasix, edema improved greatly. Echo with normal EF. Patient was ambulatory without difficulty following diuresis. Discussed her swelling could be simply from her venous stasis. She felt much stronger and felt safe to be discharged home. Granddaughter at bedside. Patient has a lot of family/friend support. She gets meals delivered. No a fib noted on tele. Will send on holter, results to pcp, to assess for paroxysmal a fib. No med changes. Fall precautions discussed. Poornima hose prn for lower ext edema. Low sodium diet. Pt agrees to plan of care. Appearance: Pleasant, No Apparent Distress and Alert HEENT: MMM and Supple CVS: Other (+MURMUR) Abdomen: Soft, Non-Tender and No Distention Respiratory: No Dyspnea Additional Findings: +TRACE EDEMA JORGE LUIS LOWER EXT, CHRONIC VENOUS STASIS DERMATITIS JORGE LUIS Vital Signs: Most Recent Vital Signs Temperature 97.8 F 08/28/23 10:00 Temperature Source Temporal Artery Scan 08/28/23 10:00 Temperature Source Oral 08/26/23 18:07 Pulse Rate 86 08/28/23 10:00 Respiratory Rate 16 08/28/23 10:00 Blood Pressure 95/49 L 08/28/23 10:00 Blood Pressure Mean 64 08/28/23 10:00 Blood Pressure Left Arm 108/64 08/26/23 21:06 Blood Pressure Location Right Arm 08/28/23 10:00 Blood Pressure Position Sitting 08/28/23 10:00 O2 Sat by Pulse Oximetry 93 L 08/28/23 13:00 Oxygen Delivery Method Room Air 08/28/23 13:00 Oxygen Flow Rate 93 08/28/23 07:00 Height 5 ft 08/26/23 21:06 Weight 160 lb 7 oz 08/26/23 21:06 Telemetry Type Remote Telemetry 08/28/23 07:00 Telemetry Monitoring Continues 08/28/23 07:00 Telemetry Heart Rate 90 08/28/23 07:00 Telemetry SPO2 93 08/28/23 07:00 EKG AR Interval 0.18 08/28/23 07:00 EKG QRS Interval 0.08 08/28/23 07:00 Telemetry Strip Reading SR WITH PACS 08/28/23 07:00 Pulse Oximetry Type Remote Telemetry 08/28/23 13:00 Pulse Oximetry Monitoring Continues 08/28/23 13:00 Imaging: THE EXAM: CHEST ONE-VIEW History: Diminished breath sounds FINDINGS: Normal cardiomediastinal contours aside from small hiatus hernia shadow. Normal pulmonary vasculature. No infiltrative opacities. No acute chest wall abnormality. Impression: No acute cardiopulmonary disease Lab Results Last 24 Hours: 08/28/23 08:40 WBC 7.10 RBC 4.77 Hgb 13.8 Hct 42.9 MCV 89.9 MCH 28.9 MCHC 32.2 RDW Coeff of Arturo 14.1 Plt Count 359 D Immature Gran % (Auto) 0.3 Neut % (Auto) 69.1 Lymph % (Auto) 20.3 [place] % (Auto) 7.5 Eos % (Auto) 2.7 Baso % (Auto) 0.1 Neut # (Auto) 4.9 Lymph # (Auto) 1.4 [place] # (Auto) 0.5 Eos # (Auto) 0.2 Baso # (Auto) 0.0 Immature Gran # (Auto) 0.0 Sodium 137.9 Potassium 3.39 L Chloride 103.5 Carbon Dioxide 29.5 Anion Gap 8.29 BUN 21.7 H Creatinine 1.11 Estimated GFR (MDRD) 46.00 BUN/Creatinine Ratio 19.54 Glucose 121.0 H Calcium 8.44 Total Bilirubin 0.64 AST 26.4 ALT 21.1 Alkaline Phosphatase 100.0 Total Protein 7.40 Albumin 3.69 Globulin 3.71 Albumin/Globulin Ratio 0.99 Discharge Instructions Discharge Planning: Discharge Planning > 80 minutes Discharge discussed with Dr. Kendra Thorpe. Discharge Medications: Medications at Discharge (Home Meds & RX) acetaminophen 650 mg tablet,extended release (Arthritis Pain Relief (acetaminophen) ER) 650 mg PO Q12H PRN pain 08/26/23 ferrous sulfate 325 mg (65 mg iron) tablet (Feosol) 325 mg PO DAILY 08/26/23 folic acid 1 mg tablet 1 mg PO DAILY 08/26/23 metoprolol tartrate 25 mg tablet 25 mg PO BID 08/26/23 Discharge Plan Discharge Discharge Orders: Discharge Patient (ONCE); Ordered 08/28/23 Ordered By: LILIANA DENISE Activity Restrictions/Additional Instructions: DISCHARGE TO HOME DX: FLUID OVERLOAD KEEP FEET PROPPED UP, POORNIMA HOSE PRN, LOW SODIUM DIET: LOW SODIUM ACTIVITY: TOLERATED, PT/OT HOME HEALTH ORDERED, WILL HAVE CASE MANAGEMENT CONTACT YOU WEDNESDAY HOLTER MONITOR TO SEE IF YOU HAVE A FIB Patient Disposition: HOME SELF-CARE Prescriptions: Continued folic acid 1 mg tablet 1 mg PO DAILY metoprolol tartrate 25 mg tablet 25 mg PO BID ferrous sulfate [Feosol] 325 mg (65 mg iron) tablet 325 mg PO DAILY acetaminophen [Arthritis Pain Relief (acetam)] 650 mg tablet extended release 650 mg PO Q12H PRN (Reason: pain) Did you review [place] PATIENT SERVICES MANAGER for ALL controlled substances?: Not Applicable Discussed opioids are addictive and Narcan is available by prescription or from pharmacy.: No Condition: Stable
== END 2023-08-28 16:55 | disposition home or self-care (01) ==
LOC: ED 17:54 → INTOOBSV 20:29 → MEDSURG B 20:29 → UNDODISIN 08-28 16:55
PROVIDERS: ADMIT Hospitalist; ATTEND Physician Assistant

== ENCOUNTER 2024-03-12 13:40 | Observation (INO) ==
--- NOTE | 2024-03-12 14:24 | ED.PDOC ---
General ED Provider: Dr. JANET STARK MD Chief Complaint: Extremity Pain/Injury Stated Complaint: 88 yo WF lives alone and uses a walker fell twice last week and did injured and sustained a gash on L ant. leg. Also some bruising on L knee and some L elbow injury. Denied hitting her head. No MARIN, neck, back or rib pain. Was able to walk gingerly with her walker afterward. Had declined NH placement in the past. Has admitted in late Jul 2023 for weakness, 3+ pedal edema, HFpEF. 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 She is a non-smoker and doesn't drink Time Seen by Provider: 03/12/24 14:03 Mode of Arrival: Walk-In Information Source: Patient and Family Exam Limitations: No limitations Primary Care Provider: UZAIR THORPE MD Referred to ED by: Other (self) Nursing and Triage Documentation Reviewed and Agree: Yes Does Patient Take Opioids?: No Is Patient Opioid Naive?: Yes What is Opioid Naive?: *Opioid Naive implies the patient is not already taking opioids or not chronically receiving opioids on a daily basis. *PRN dosing is not "usually" associated with tolerance. *Patients are at higher risk of over-sedation and aspiration. What is Opioid Tolerant?: *Opioid Tolerance implies less than the expected response to an opioid. *Acquired tolerance is defined by the patient taking 60mg of oral morphine daily (or equianalgesic dose of another opioid) for 1 week or more. *Often associated with chronic pain. *May take more than usual dose to achieve desired pain control. 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) Ears, Nose, Mouth, Throat: Reports No symptoms Respiratory: Reports No symptoms Cardiac: Reports No symptoms GI: Reports Diarrhea (occasional diarrhea, patient said she had 1 episode today and daughter reports occ diarrhea.); Denies Poor appetite : Reports No symptoms Musculoskeletal: Reports Joint swelling; Denies Muscle stiffness or Neck pain Skin: Reports Bruising and Rash Neurological: Denies Anxiety, Depressed, Emotional problems or Headache [facility] Medical History Tumor cells, 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 - Benign neoplasm, unspecified site (ICD-10) Hypertension I10 - Essential (primary) hypertension (ICD-10) Skin cancer C44.90 - Unspecified malignant neoplasm of skin, unspecified (ICD-10) Family History Mother Blood clot associated with vein wall inflammation FATHER Pneumonia Social History Number of children: 3 Surgical History History of bilateral knee arthroplasty Z96.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 - Presence of artificial knee joint, bilateral (ICD-10) Female Reproductive History Menstrual Hx Hysterectomy: No Hx Tubal Ligation: No Physical Exam Physical Exam Appearance: Reports Well-appearing Ill-appearing: None Pain Distress: Mild Eyes: Reports EOMI and Other (blind in L eye) ENT: Reports Nose normal and Oropharynx normal Neck: Supple Respiratory: Reports Airway patent, Breath sounds clear, Breath sounds equal and Breath sounds diminished; Denies Wheezes or Retractions Cardiovascular: Reports RRR and Pulses normal GI/: Reports Soft, Nontender, No masses and Bowel sounds normal Musculoskeletal: Reports Normal strength, Edema and Other (2 inch gash with necrotic skin and 2 inch wound. Some surrounding erythema but no drainage. 2+ edema in both legs) Skin: Reports Warm, Dry and Other (see exam of MS system of gash in L leg and cellulitis like wound) Neurological: Reports Sensation intact and Motor intact Psychiatric: Reports Affect appropriate and Mood appropriate Course Course 03/12/24 14:57 03/12/24 14:57 Orders, Labs, Meds: Lab Review 03/12/24 03/12/24 14:30 14:57 WBC 7.58 RBC 4.37 Hgb 12.7 Hct 39.7 MCV 90.8 MCH 29.1 MCHC 32.0 RDW Coeff of Arturo 14.9 H Plt Count 324 Immature Gran % (Auto) 0.4 Neut % (Auto) 62.3 Lymph % (Auto) 26.9 [place] % (Auto) 8.4 Eos % (Auto) 1.6 Baso % (Auto) 0.4 Neut # (Auto) 4.7 Lymph # (Auto) 2.0 [place] # (Auto) 0.6 Eos # (Auto) 0.1 Baso # (Auto) 0.0 Immature Gran # (Auto) 0.0 Sodium 140.0 Potassium 3.97 Chloride 108.3 H Carbon Dioxide 26.1 Anion Gap 9.57 BUN 20.5 H Creatinine 1.04 Estimated GFR (MDRD) 50.00 BUN/Creatinine Ratio 19.71 Glucose 96.5 Calcium 8.61 Total Bilirubin 0.58 AST 24.1 ALT 14.9 Alkaline Phosphatase 80.1 NT-Pro-B Natriuret Pep 987 H Total Protein 6.37 Albumin 3.66 Globulin 2.71 Albumin/Globulin Ratio 1.35 SARS CoV-2 RNA Rapid EMILIA Negative Orders Category Date Time Status Saline Lock [ED IV/MEDIPORT/POWERPORT] .ONCE EMERGENCY 03/12/24 14:13 Active CBC W/ AUTO DIFF Stat LAB 03/12/24 14:57 Completed CMP [COMPREHENSIVE METABOLIC PANEL] Stat LAB 03/12/24 14:57 Completed COVID [SARS COV-2 RNA RAPID EMILIA] Stat LAB 03/12/24 14:30 Completed PROBNP ED [NT-PROBNP(ED)] Stat LAB 03/12/24 14:57 Completed 0.9 % Sodium Chloride [Saline Flush] Meds 03/12/24 14:13 Active 1 syr IVF PRN PRN Cefazolin Sodium/Dextrose,Iso [Ancef 1 gm/50 ml D5w] Meds 03/12/24 14:13 Discontinued 2 gm in 100 ml IV ONCE CHEST, 1V AP ONLY Stat RADS 03/12/24 14:13 Completed KNEE LEFT 3 VIWS Stat RADS 03/12/24 14:13 Completed TIBIA/FIBULA, LEFT 2 VIEWS Stat RADS 03/12/24 14:13 Completed Medications Generic Name Dose Route Start Last Admin Trade Name Freq PRN Reason Stop Dose Admin Sodium Chloride 1 syr 03/12/24 14:13 0.9% Sodium Chloride 10 Ml Disp.Syrin IVF PRN PRN To flush IV Discontinued Medications Generic Name Dose Route Start Last Admin Trade Name Freq PRN Reason Stop Dose Admin Cefazolin Sodium/Dextrose 2 gm in 100 mls @ 150 mls/hr 03/12/24 14:13 03/12/24 15:11 Ancef 1 Gm/50 Ml D5w IV 03/12/24 14:52 150 mls/hr ONCE ONE Administration Vital Signs: Temp Pulse Resp BP Pulse Ox 06/16/24 13:42 98.4 F 74 18 128/67 96 Discharge Plan Discharge Patient Disposition: PLACED OBSERVATION Discharge Problem: Infection, wound status post trauma, Cellulitis Did you review [place] DIRECTOR OF LEARNING for ALL controlled substances?: No ED Provider: JANET STARK Condition: Fair Physician Progress Note: Labs noted and she was given 2 grams of Ancef. Discussed with hospitalist and will admit for IV antibiotic OBS. Her attending Thorpe is out of town currently
[2024-03-12 15:00] LABS: BASOPHILS % (AUTO) 0.4 % (0.0-3.0); EOSINOPHILS # (AUTO) 0.1 K/ul (0.0-0.7); EOSINOPHILS % (AUTO) 1.6 % (0.0-7.0); HEMATOCRIT 39.7 % (37.0-47.0); HEMOGLOBIN 12.7 g/dl (12.0-16.0); IMMATURE GRANULOCYTE % (AUTO) 0.4 % (0.0-5.0); LYMPHOCYTES % (AUTO) 26.9 (10.0-50.0); MEAN CORPUSCULAR HEMOGLOBIN 29.1 pg (27.0-31.0); MEAN CORPUSCULAR VOLUME 90.8 fl (81.0-99.0); MONOCYTES # (AUTO) 0.6 K/uL (0.4-2.0); MONOCYTES % (AUTO) 8.4 (0-10); NEUTROPHILS # (AUTO) 4.7 K/ul (2.0-6.9); NEUTROPHILS % (AUTO) 62.3 % (42.2-75.2); PLATELET COUNT 324 10^3/uL (140-440); RDW COEFFICIENT OF VARIATION 14.9 % (11.6-14.8); RED BLOOD COUNT 4.37 10^6/ul (4.20-5.40); WHITE BLOOD COUNT 7.58 K/ul (4.6-10.2)
[2024-03-12] MEDS: ANCEF 1 GM/50 ML D5W 2 GM/100 ML BAG IV ONE (15:11)
[2024-03-12 15:12] LABS: ALANINE AMINOTRANSFERASE 14.9 U/L (0-35); ALBUMIN 3.66 g/dL (3.5-5.0); ALKALINE PHOSPHATASE 80.1 U/L (53-141); ASPARTATE AMINO TRANSFERASE 24.1 U/L (14-36); BILIRUBIN,TOTAL 0.58 mg/dL (0.2-1.3); BLOOD UREA NITROGEN 20.5 mg/dL (7-17); CALCIUM 8.61 mg/dL (8.4-10.2); CARBON DIOXIDE 26.1 mmol/L (22-30.0); CHLORIDE 108.3 mmol/L (98-107); CREATININE 1.04 mg/dL (0.60-1.30); GLUCOSE 96.5 mg/dL (74-106); POTASSIUM 3.97 mmol/L (3.5-5.1); TOTAL PROTEIN 6.37 g/dL (6.3-8.2)
[2024-03-12 15:19] LABS: SARS COV-2 RNA RAPID NAAT NEGATIVE (NEGATIVE)
--- NOTE | 2024-03-12 15:27 | DI ---
EXAMINATION: AP CHEST RADIOGRAPH. HISTORY: Congestive heart failure COMPARISON: 01/26/2024 FINDINGS: The patient is rotated to the right.No focal consolidation, pleural effusion or pneumothorax is ident ified. The cardiac silhouette appears mildly prominent but is limited in evaluation secondary to the patient rotation. The pulmonary vasculature is normal. Moderate hiatal hernia is seen. Gallstones are suspected. IMPRESSION: No acute cardiopulmonary findings. No evidence of pulmonary vascular congestion or pulmonary edema. Hiatal hernia. Probable gallstones.
--- NOTE | 2024-03-12 15:29 | DI ---
EXAM: LEFT KNEE RADIOGRAPH TECHNIQUE: 3 views. Frontal, lateral, and merchant. HISTORY: Left knee pain. COMPARISON: 08/26/2023 IMPRESSION: Total knee arthroplasty. No significant effusion. No fracture or dislocation. Hardware appears intact.
--- NOTE | 2024-03-12 15:32 | DI ---
EXAM: LEFT TIBIA AND FIBULA RADIOGRAPH. TWO VIEWS. HISTORY: Trauma. Left lower leg pain. TECHNIQUE: Two views. Frontal and lateral. COMPARISON: None. IMPRESSION: There is no acute fracture. No osseous lesions are identified. The soft tissues are unr emarkable. Adjacent joint spaces are unremarkable. Total knee arthroplasty partially visualized.
[2024-03-12 16:32] VITALS: BMI 30.4
[2024-03-12] MEDS ORDERED: ZOFRAN 4 MG/2 ML IVP PRN (17:11)
[2024-03-12] MEDS ORDERED: TYLENOL PO PRN (17:11)
[2024-03-12] MEDS: LASIX IVP SCH (18:13)
[2024-03-12] MEDS: LASIX ONE (18:36)
[2024-03-12] MEDS: ANCEF 1 GM/50 ML D5W 2 GM/100 ML BAG IV SCH (20:12)
[2024-03-12] MEDS: LOPRESSOR PO SCH (20:13)
[2024-03-13 05:31] LABS: BASOPHILS % (AUTO) 0.3 % (0.0-3.0); EOSINOPHILS # (AUTO) 0.1 K/ul (0.0-0.7); EOSINOPHILS % (AUTO) 1.7 % (0.0-7.0); HEMATOCRIT 42.1 % (37.0-47.0); HEMOGLOBIN 13.4 g/dl (12.0-16.0); IMMATURE GRANULOCYTE % (AUTO) 0.4 % (0.0-5.0); LYMPHOCYTES # (AUTO) 2.2 K/uL (0.60-3.4); LYMPHOCYTES % (AUTO) 28.4 (10.0-50.0); MEAN CORPUSCULAR HEMOGLOBIN 28.6 pg (27.0-31.0); MEAN CORPUSCULAR HGB CONC 31.8 (31.8-35.4); MONOCYTES # (AUTO) 0.6 K/uL (0.4-2.0); MONOCYTES % (AUTO) 8.4 (0-10); NEUTROPHILS # (AUTO) 4.7 K/ul (2.0-6.9); NEUTROPHILS % (AUTO) 60.8 % (42.2-75.2); PLATELET COUNT 321 10^3/uL (140-440); RED BLOOD COUNT 4.68 10^6/ul (4.20-5.40); WHITE BLOOD COUNT 7.64 K/ul (4.6-10.2)
[2024-03-13 05:47] LABS: ALANINE AMINOTRANSFERASE 12.8 U/L (0-35); ALBUMIN 3.81 g/dL (3.5-5.0); ALKALINE PHOSPHATASE 75.2 U/L (53-141); ASPARTATE AMINO TRANSFERASE 25.1 U/L (14-36); BILIRUBIN,TOTAL 0.5 mg/dL (0.2-1.3); BLOOD UREA NITROGEN 18.7 mg/dL (7-17); CALCIUM 8.52 mg/dL (8.4-10.2); CARBON DIOXIDE 28.8 mmol/L (22-30.0); CHLORIDE 108.4 mmol/L (98-107); CREATININE 0.97 mg/dL (0.60-1.30); POTASSIUM 3.92 mmol/L (3.5-5.1); SODIUM 141.3 mmol/L (134.5-145); TOTAL PROTEIN 6.75 g/dL (6.3-8.2)
[2024-03-13] MEDS: LOVENOX SUBCUT SCH (08:31)
[2024-03-13] MEDS: FERROUS SULFATE PO SCH (08:31)
[2024-03-13] MEDS: FOLIC ACID PO SCH (08:31)
--- NOTE | 2024-03-13 09:06 | PCM ---
Date of Service Date Seen by Provider: 03/13/24 Time Seen by Provider: 08:30 Admit Day/Time Admission Date: 03/12/24 Reason for Admission Chief Complaint: CELLULITIS Hospital Provider Hospital Provider: LINO QUINTEROS, [facility] [place] Primary Care Physician Primary Care Physician: UZAIR THORPE MD History of Present Illness History of Present Illness: 88 yo female presented to the ER with lower extremity redness and swelling. Patient reports that she fell twice last week walking with her walker and sustained laceration to L leg. Has hematoma with eschar present. No open area with drainage. Significant redness noted surrounding wound. Mild swelling present BLE. Denies fever, chills, or other symptoms. Case Discussed With Case Discussed With: Patient's case was discussed with the ER Physicians, Dr. Snow. 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, bilateral (ICD-10) Family History Mother Blood clot associated with vein wall inflammation FATHER Pneumonia Social History Smoking and tobacco status: Never smoker Number of children: 3 Allergies Allergies Allergy/AdvReac Type Severity Reaction Status Date / Time No Known Allergies Allergy Verified 03/12/24 13:54 Current Medications Home Medications acetaminophen 650 mg tablet,extended release (Arthritis Pain Relief (acetaminophen) ER) 650 mg PO Q12H PRN pain 08/26/23 [History Confirmed 03/12/24 Last Taken 03/12/24] ferrous sulfate 325 mg (65 mg iron) tablet (Feosol) 325 mg PO DAILY 08/26/23 [History Confirmed 03/12/24 Last Taken 03/12/24] folic acid 1 mg tablet 1 mg PO DAILY 08/26/23 [History Confirmed 03/12/24 Last Taken Unknown] metoprolol tartrate 25 mg tablet 25 mg PO BID 08/26/23 [History Confirmed 03/12/24 Last Taken Unknown] Home Acetaminophen (Acetaminophen 325 Mg Tablet) 650 mg PO Q6H PRN PRN Reason: Pain Enoxaparin Sodium (Enoxaparin Sodium 40 Mg/0.4 Ml Syr) 40 mg SUBCUT DAILY [facility] Last Admin: 03/13/24 08:31 Dose: 40 mg Ferrous Sulfate (Ferrous Sulfate 324 Mg Tablet.Dr) 324 mg PO DAILY [facility] Last Admin: 03/13/24 08:31 Dose: 324 mg Folic Acid (Folic Acid 1 Mg Tablet) 1 mg PO DAILY [facility] Last Admin: 03/13/24 08:31 Dose: 1 mg Cefazolin Sodium/Dextrose (Ancef 1 Gm/50 Ml D5w) 2 gm in 100 mls @ 150 mls/hr IV Q8HR [facility] Stop: 03/15/24 20:59 Last Admin: 03/13/24 05:13 Dose: 150 mls/hr Metoprolol Tartrate (Metoprolol Tartrate 25 Mg Tablet) 25 mg PO BID [facility] Last Admin: 03/13/24 08:31 Dose: 25 mg Ondansetron HCl (Ondansetron Hcl/Pf 4 Mg/2 Ml Sdv) 4 mg IVP Q6H PRN PRN Reason: Nausea / Vomiting Sodium Chloride (0.9% Sodium Chloride 10 Ml Disp.Syrin) 1 syr IVF PRN PRN PRN Reason: To flush IV Last Admin: 03/12/24 20:13 Dose: 1 syr Discontinued Medications Furosemide (Furosemide Inj 20 Mg/2 Ml Vial) 20 mg IVP Q8HR [facility] Last Admin: 03/13/24 05:56 Dose: 20 mg Cefazolin Sodium/Dextrose (Ancef 1 Gm/50 Ml D5w) 2 gm in 100 mls @ 150 mls/hr IV ONCE ONE Stop: 03/12/24 14:52 Last Admin: 03/12/24 15:11 Dose: 150 mls/hr Opioid Naive vs. Tolerant Does Patient Take Opioids?: No Is Patient Opioid Naive?: Yes What is Opioid Naive?: *Opioid Naive implies the patient is not already taking opioids or not chronically receiving opioids on a daily basis. *PRN dosing is not "usually" associated with tolerance. *Patients are at higher risk of over-sedation and aspiration. Is Patient Opioid Tolerant?: No What is Opioid Tolerant?: *Opioid Tolerance implies less than the expected response to an opioid. *Acquired tolerance is defined by the patient taking 60mg of oral morphine daily (or equianalgesic dose of another opioid) for 1 week or more. *Often associated with chronic pain. *May take more than usual dose to achieve desired pain control. Review of Systems Constitutional: Reports No symptoms Head: Reports Normocephalic Eyes: Reports No symptoms Ears: Reports No symptoms Nose: Reports No symptoms Mouth: Reports No symptoms Throat: Reports No symptoms Cardiovascular: Reports No symptoms Respiratory: Reports No symptoms Gastrointestinal: Reports No symptoms Genitourinary: Reports No Symptoms Dermatologic: Reports Other (redness, swelling to L leg) Endocrine: Reports No symptoms Hematology: Reports No symptoms Immunology: Reports No symptoms Neurological: Reports No symptoms Psychiatric: Reports No symptoms Physical examination Most Recent Vital Signs: Most Recent Vital Signs Temperature 98.5 F 03/13/24 05:08 Temperature Source Temporal Artery Scan 03/13/24 05:08 Temperature Source Temporal Artery Scan 03/12/24 13:42 Pulse Rate 81 03/13/24 05:08 Respiratory Rate 16 03/13/24 05:08 Blood Pressure 154/75 H 03/13/24 05:08 Blood Pressure Mean 101 03/13/24 05:08 Blood Pressure Left Arm 157/101 03/12/24 16:21 Blood Pressure Location Right Arm 03/13/24 05:08 Blood Pressure Position Supine 03/13/24 05:08 O2 Sat by Pulse Oximetry 93 L 03/13/24 05:08 Oxygen Delivery Method Room Air 03/13/24 08:00 Height 5 ft 03/12/24 16:21 Weight 155 lb 12.8 oz 03/12/24 16:21 Telemetry Heart Rate 81 08/28/23 13:00 Telemetry SPO2 93 08/28/23 07:00 Appearance: Positive No Apparent Distress and Alert and Oriented x3 Skin: Positive Warm and Good Turgor HEENT: Positive Normocephalic and Atraumatic Neck: Positive Supple and Midline Trachea Chest/Lungs: Positive Symmetrical With Equal Breath Sounds, Clear to Auscultation Bilaterally and Good Air Movement all 4 Lung Pickard Heart: Positive RRR, Pulses Normal and Murmur GI/: Positive Soft, Nontender, Bowel Sounds Normal and No Distention Musculoskeletal: Positive Not Examined Extremities: Positive Edema (+1-2 pitting edema BLE), Stable Joints Without Laxity, Good ROM in All Joints and Other (erythema to L lower extremity, hematoma with eschar also present, no open area or drainage present) Neurological: Positive Sensation Intact, Motor intact, Alert and Oriented Labs This Visit Labs This Visit: Labs This Visit 03/12/24 03/12/24 03/13/24 14:30 14:57 05:26 WBC 7.58 7.64 RBC 4.37 4.68 Hgb 12.7 13.4 Hct 39.7 42.1 MCV 90.8 90.0 MCH 29.1 28.6 MCHC 32.0 31.8 RDW Coeff of Arturo 14.9 H 15.0 H Plt Count 324 321 Immature Gran % (Auto) 0.4 0.4 Neut % (Auto) 62.3 60.8 Lymph % (Auto) 26.9 28.4 [place] % (Auto) 8.4 8.4 Eos % (Auto) 1.6 1.7 Baso % (Auto) 0.4 0.3 Neut # (Auto) 4.7 4.7 Lymph # (Auto) 2.0 2.2 [place] # (Auto) 0.6 0.6 Eos # (Auto) 0.1 0.1 Baso # (Auto) 0.0 0.0 Immature Gran # (Auto) 0.0 0.0 Sodium 140.0 141.3 Potassium 3.97 3.92 Chloride 108.3 H 108.4 H Carbon Dioxide 26.1 28.8 Anion Gap 9.57 8.02 BUN 20.5 H 18.7 H Creatinine 1.04 0.97 Estimated GFR (MDRD) 50.00 54.00 BUN/Creatinine Ratio 19.71 19.27 Glucose 96.5 91.0 Calcium 8.61 8.52 Total Bilirubin 0.58 0.50 AST 24.1 25.1 ALT 14.9 12.8 Alkaline Phosphatase 80.1 75.2 NT-Pro-B Natriuret Pep 987 H Total Protein 6.37 6.75 Albumin 3.66 3.81 Globulin 2.71 2.94 Albumin/Globulin Ratio 1.35 1.29 Procalcitonin < 0.05 SARS CoV-2 RNA Rapid EMILIA Negative Review Statement Review Statement: I have independently reviewed and interpreted the labs/EKGs/imaging that were ordered by the ER provider. I have reviewed all outside records that are available currently in our EMR including imaging/notes/labs from previous visits. Plan Plan: 1. Cellulitis to LLE - ancef Q8H, unable to culture wound, clean wound BID 2. Hypertension - chronic, continue home medications 3. Iron Deficiency Anemia - chronic, continue home medications 4. CHF - chronic, does not appear in exacerbation, swelling reported to ER provider, received lasix overnight, do not feel patient is edematous today, stopped lasix DVT Prophylaxis: Lovenox Time Spent: Greater than 80 minutes spent with patient, 50% of the time spent with this patient was devoted to counseling and coordination of care. Advanced [facility] Plannin minutes spent discussing advance care planning. Disposition: Admit to: Med/Surg Observation Full Code Discussed Plan of Care with Dr. Vashti Thorpe. Medications Medication Orders: Medications Ordered Category Date Time Status 0.9 % Sodium Chloride [Saline Flush] Meds 03/12/24 14:13 Active 1 syr IVF PRN PRN Acetaminophen [Tylenol] Meds 03/12/24 17:11 Active 650 mg PO Q6H PRN Cefazolin Sodium/Dextrose,Iso [Ancef 1 gm/50 ml D5w] Meds 03/12/24 21:00 Active 2 gm in 100 ml IV Q8HR Enoxaparin Sodium [Lovenox] Meds 03/13/24 09:00 Active 40 mg SUBCUT DAILY Ferrous Sulfate Meds 03/13/24 09:00 Active 324 mg PO DAILY Folic Acid Meds 03/13/24 09:00 Active 1 mg PO DAILY Metoprolol Tartrate [Lopressor] Meds 03/12/24 21:00 Active 25 mg PO BID Ondansetron HCl/Pf [Zofran 4 mg/2 ml] Meds 03/12/24 17:11 Active 4 mg IVP Q6H PRN
[2024-03-14] MEDS: LASIX TAB PO SCH (04:59)
[2024-03-14 05:10] LABS: BASOPHILS % (AUTO) 0.4 % (0.0-3.0); EOSINOPHILS # (AUTO) 0.2 K/ul (0.0-0.7); EOSINOPHILS % (AUTO) 2.5 % (0.0-7.0); HEMATOCRIT 42.9 % (37.0-47.0); HEMOGLOBIN 13.6 g/dl (12.0-16.0); IMMATURE GRANULOCYTE % (AUTO) 0.3 % (0.0-5.0); LYMPHOCYTES # (AUTO) 2.3 K/uL (0.60-3.4); LYMPHOCYTES % (AUTO) 33.2 (10.0-50.0); MEAN CORPUSCULAR HEMOGLOBIN 28.9 pg (27.0-31.0); MEAN CORPUSCULAR HGB CONC 31.7 (31.8-35.4); MEAN CORPUSCULAR VOLUME 91.1 fl (81.0-99.0); MONOCYTES # (AUTO) 0.6 K/uL (0.4-2.0); MONOCYTES % (AUTO) 8.8 (0-10); NEUTROPHILS # (AUTO) 3.7 K/ul (2.0-6.9); NEUTROPHILS % (AUTO) 54.8 % (42.2-75.2); PLATELET COUNT 313 10^3/uL (140-440); RDW COEFFICIENT OF VARIATION 14.9 % (11.6-14.8); RED BLOOD COUNT 4.71 10^6/ul (4.20-5.40); WHITE BLOOD COUNT 6.78 K/ul (4.6-10.2)
[2024-03-14 05:28] LABS: ALANINE AMINOTRANSFERASE 7.5 U/L (0-35); ALBUMIN 3.77 g/dL (3.5-5.0); ALKALINE PHOSPHATASE 78.3 U/L (53-141); BILIRUBIN,TOTAL 0.5 mg/dL (0.2-1.3); BLOOD UREA NITROGEN 14.7 mg/dL (7-17); CALCIUM 8.79 mg/dL (8.4-10.2); CARBON DIOXIDE 31.6 mmol/L (22-30.0); CHLORIDE 108.2 mmol/L (98-107); CREATININE 0.93 mg/dL (0.60-1.30); GLUCOSE 91.8 mg/dL (74-106); POTASSIUM 3.49 mmol/L (3.5-5.1); SODIUM 141.8 mmol/L (134.5-145); TOTAL PROTEIN 6.65 g/dL (6.3-8.2)
--- NOTE | 2024-03-14 08:27 | DCSUM ---
Admission Date Admission Date: 03/12/24 Discharge Date Discharge Date: 03/14/24 Admission Diagnosis Admission Diagnosis: 1. Cellulitis to LLE 2. Hypertension 3. Iron Deficiency Anemia 4. CHF Discharge Diagnosis Discharge Diagnosis: 1. Cellulitis to LLE - Improving 2. Hypertension - chronic, stable 3. Iron Deficiency Anemia - chronic, stable 4. CHF - chronic, stable Hospital Provider Hospital Provider: LINO QUINTEROS, [facility] [place] Primary Care Physician Primary Care Physician: UZAIR MELVIN MD Summary of History and Physical Summary of History and Physical: 88 yo female presented to the ER with lower extremity redness and swelling. Patient reports that she fell twice last week walking with her walker and sustained laceration to L leg. Has hematoma with eschar present. No open area with drainage. Significant redness noted surrounding wound. Mild swelling present BLE. Denies fever, chills, or other symptoms. Hospital Course Subjective: During stay, patient received ancef Q8H for treatment of cellulitis to LLE d/t wound on barrientos. Redness improved and swelling is nearly resolved. WBC count within normal limits. No fever noted during stay. Initially was given lasix due to swelling/concern for CHF exacerbation. Patient reports that she was on lasix at home for a brief time but was taken off of it due to worsening kidney function. Denied any shortness of breath and states her legs "always are a little puffy". Swelling was worse to LLE and likely due to cellulitis. Has PVD and bilateral lower extremities have dusky appearance. Potassium slightly low this am and replaced. No changes were made to home medications. Daughter reported concerns of patient going home and falling again while she is unable to help care for her due to family member undergoing surgery. Requested longterm placement. Patient is oriented x 3 and able to make her own decisions and refuses placement at this time. cotton farmworker spoke with granddaughter that helps the patient multiple times a week and visits when needed and reports that she felt she would benefit from home health as well as potentially someone to stay with her during the day. Private sitter list was given to the patient and patient is agreeable to complete home health. Discussed need for wound care due to eschar noted on wound bed and will likely need debridement to assist with healing process. Appearance: Pleasant, No Apparent Distress and Alert HEENT: MMM and Supple CVS: No Murmur, No Rubs and No Gallop Abdomen: Soft, Non-Tender and No Distention Respiratory: No Dyspnea Extremities: Other (+1 pitting edema BLE) Additional Findings: Improving erythema to LLE, wound with eschar, no drainage Vital Signs: Most Recent Vital Signs Temperature 97.0 F L 03/14/24 05:20 Temperature Source Temporal Artery Scan 03/14/24 05:20 Temperature Source Temporal Artery Scan 03/12/24 13:42 Pulse Rate 72 03/14/24 05:20 Respiratory Rate 16 03/14/24 05:20 Blood Pressure 148/63 H 03/14/24 05:20 Blood Pressure Mean 91 03/14/24 05:20 Blood Pressure Left Arm 157/101 03/12/24 16:21 Blood Pressure Location Right Arm 03/14/24 05:20 Blood Pressure Position Supine 03/14/24 05:20 O2 Sat by Pulse Oximetry 96 03/14/24 05:20 Oxygen Delivery Method Room Air 03/14/24 08:00 Height 5 ft 03/13/24 10:51 Weight 154 lb 1 oz 03/14/24 05:07 Telemetry Heart Rate 81 08/28/23 13:00 Telemetry SPO2 93 08/28/23 07:00 Lab Results Last 24 Hours: 03/14/24 05:05 WBC 6.78 RBC 4.71 Hgb 13.6 Hct 42.9 MCV 91.1 MCH 28.9 MCHC 31.7 L RDW Coeff of Arturo 14.9 H Plt Count 313 Immature Gran % (Auto) 0.3 Neut % (Auto) 54.8 Lymph % (Auto) 33.2 [place] % (Auto) 8.8 Eos % (Auto) 2.5 Baso % (Auto) 0.4 Neut # (Auto) 3.7 Lymph # (Auto) 2.3 [place] # (Auto) 0.6 Eos # (Auto) 0.2 Baso # (Auto) 0.0 Immature Gran # (Auto) 0.0 Sodium 141.8 Potassium 3.49 L Chloride 108.2 H Carbon Dioxide 31.6 H Anion Gap 5.49 BUN 14.7 Creatinine 0.93 Estimated GFR (MDRD) 57.00 BUN/Creatinine Ratio 15.80 Glucose 91.8 Calcium 8.79 Total Bilirubin 0.50 AST 23.0 ALT 7.5 Alkaline Phosphatase 78.3 Total Protein 6.65 Albumin 3.77 Globulin 2.88 Albumin/Globulin Ratio 1.30 Discharge Instructions Discharge Planning: Discharge Planning > 40 minutes If patient is discharged with left ventricular systolic dysfunction: NA Discharged with a beta kristopher? [] If no, why not? [] Discharged with an yoav/arb? [] If no, why not? [] Diagnosis: Cellulitis to LLE Diet: Regular Activity: as tolerated, home health PT/OT/NURSING Keep wound clean and dry. Wash with soap and water daily. Leave open to air. Follow-up: with PCP this week Medication: Keflex four times a day x 5 days Discharge Medications: Medications at Discharge (Home Meds & RX) acetaminophen 650 mg tablet,extended release (Arthritis Pain Relief (acetaminophen) ER) 650 mg PO Q12H PRN pain 08/26/23 ferrous sulfate 325 mg (65 mg iron) tablet (Feosol) 325 mg PO DAILY 08/26/23 folic acid 1 mg tablet 1 mg PO DAILY 08/26/23 metoprolol tartrate 25 mg tablet 25 mg PO BID 08/26/23 Discharge Plan Discharge Discharge Orders: Discharge Patient (ONCE); Ordered 03/14/24 Ordered By: CHRISTIE HOBSON Activity Restrictions/Additional Instructions: Diet: Regular Activity: as tolerated, home health PT/OT/NURSING Keep wound clean and dry. Wash with soap and water daily. Leave open to air. Follow-up: with PCP this week Medication: Keflex 4 times a day x 5 days YOU HAVE BEEN REFERRED TO HOME HEALTH THROUGH [facility] THEY WILL BE IN CONTACT TO SET UP HOME THERAPY AND NURSING. SHOULD YOU NEED TO REACH OUT TO THEM THEIR NUMBER IS [phone]. YOU HAVE BEEN REFERRED TO OUTPATIENT WOUND CARE FOR YOUR LEG AT [facility]. THEY WILL BE IN CONTACT WITH YOU TO INITIATE AN APPOINTMENT. Instructions: Cellulitis (GEN) Patient Disposition: HOME WITH FAMILY CARE Prescriptions: New cephalexin 500 mg capsule 500 mg PO QID Qty: 20 0RF Continued folic acid 1 mg tablet 1 mg PO DAILY metoprolol tartrate 25 mg tablet 25 mg PO BID ferrous sulfate [Feosol] 325 mg (65 mg iron) tablet 325 mg PO DAILY acetaminophen [Arthritis Pain Relief (acetam)] 650 mg tablet extended release 650 mg PO Q12H PRN (Reason: pain) Did you review [place] [employer] for ALL controlled substances?: No Discussed opioids are addictive and Narcan is available by prescription or from pharmacy.: No Condition: Fair Referrals: RAY VIDAL [REFERRING] - 03/20/24 10:30 am
[2024-03-14] MEDS: K-DUR PO ONE (08:30)
[2024-03-14 09:55] VITALS: RESP 14
[2024-03-14 14:54] VITALS: BP 139/72; PULSE 74; TEMP 98.6
== END 2024-03-14 16:25 | disposition home or self-care (01) ==
LOC: MEDSURG B 13:40 → ED 13:40 → MEDSURG B 16:22
PROVIDERS: ADMIT Hospitalist; ATTEND Nurse Practitioner Family
DX: Z96.652 Presence of left artificial knee joint; D50.9 Iron deficiency anemia, unspecified; W19.XXXA Unspecified fall, initial encounter; S81.812A Laceration without foreign body, left lower leg, initial encounter; I10 Essential (primary) hypertension; S80.02XA Contusion of left knee, initial encounter; Z20.822 Contact with and (suspected) exposure to COVID-19; L03.116 Cellulitis of left lower limb; I50.9 Heart failure, unspecified